=== PATIENT | male | born 1970 | race Two or more races ===

== ENCOUNTER 2019-06-26 20:22 | Emergency (ER) | payer MEDICAID ==
[~2019-06-26] VITALS: Ht 177.8 cm; Wt 68.0 kg
[2019-06-26 20:22] VITALS: BP 133/83
--- NOTE | 2019-06-26 20:22 | NUR ---
ED Nurse Note: Patient brought in by RA from street c/o ETOH. Denies nausea and vomiting. No pain or any discomfort. Pt has history of alcohol withdrawal. Not in any distress. VSS.
--- NOTE | 2019-06-26 20:26 | Emergency Room Report ---
History of Present Illness General Chief Complaint: Alcohol Intoxication Source: Patient, EMS (Maxi Bernard MD) Present Illness HPI 49-year-old male history of alcohol abuse drank 1 bottle of vodka, patient presents with acute intoxication patient was walking outside patient was found intoxicated by a bystander patient denies any head trauma patient states he is drinking he is trying to get into a program he has a history of alcohol withdrawal seizures patient presents for evaluation alcohol toxic patient is aggravated by drinking alleviated by not drinking severity is moderate, constant (Maxi Bernard MD) Allergies: Coded Allergies: No Known Allergies (Unverified , 06/26/19) Patient History Past Medical History: see triage record Social History: Reports: alcohol use - Alcohol abuse Reviewed Nursing Documentation: PMH: Agreed; PSxH: Agreed (Maxi Bernard MD) Review of Systems All Other Systems: negative except mentioned in HPI (Maxi Bernard MD) Physical Exam Vital Signs Date Time Temp Pulse Resp B/P (MAP) Pulse Ox O2 Delivery O2 Flow Rate FiO2 06/26/19 20:09 98.4 92 18 133/83 (100) 98 Room Air Sp02 EP Interpretation: reviewed, normal General Appearance: well appearing, no apparent distress, alert Head: normocephalic, atraumatic Eyes: bilateral eye PERRL, bilateral eye EOMI ENT: uvula midline, moist mucus membranes Neck: supple, thyroid normal, supple/symm/no masses Respiratory: lungs clear, no respiratory distress, no retraction, no accessory muscle use Cardiovascular #1: normal peripheral pulses, regular rate, rhythm, no edema, no gallop, no murmur Gastrointestinal: non tender, soft, no guarding, no rebound Musculoskeletal: normal inspection Neurologic: alert, oriented x3 Psychiatric: mood/affect normal Skin: no rash, warm/dry (Maxi Bernard MD) Medical Decision Making Diagnostic Impression: Primary Impression: Acute alcoholic intoxication Qualified Codes: F10.920 - Alcohol use, unspecified with intoxication, uncomplicated ER Course 49-year-old male presents with acute alcohol intoxication will continue to watch patient until he ivan Plan for discharge in the morning (Maxi Bernard MD) Last Vital Signs Date Time Temp Pulse Resp B/P (MAP) Pulse Ox O2 Delivery O2 Flow Rate FiO2 06/26/19 20:09 98.4 92 18 133/83 (100) 98 Room Air (Maxi Bernard MD) Reevaluation Time: 05:45 Reevaluation Impression Assumed care of the patient from previous provider approximately 10 PM. Briefly this a 49-year-old male who came in for evaluation of alcohol intoxication. He was allowed to sleep in the emergency department overnight. He is now clinically sober and stable for discharge. Resources provided in discharge paperwork. He can return to the emergency department new or worsening symptoms. (Mick Katz MD) Disposition: HOME, SELF-CARE Condition: Stable Referrals: [facility] Patient Instructions: Alcohol Intoxication, Eikj-lw-Icej, Alcohol Use Disorder Additional Instructions: The patient was provided with discharge instructions, notified to follow-up with a primary care doctor and or specialist in the next 24-48 hours, and to return to the ED if they have worsening of their symptoms. Please note that this report is being documented using [employer] technology. This can lead to erroneous entry secondary to incorrect interpretation by the dictating instrument. Maxi Bernard MD Jun 26, 2019 20:26 Mick Katz MD Jun 27, 2019 05:46
[2019-06-26] MEDS ORDERED: Thiamine 100mg tab ORAL ONE (20:30)
[2019-06-26] MEDS ORDERED: chlordiazePOXIDE 25mg Cap ORAL ONE (20:30)
[2019-06-26 23:05] VITALS: BP 137/76
--- NOTE | 2019-06-26 23:14 | NUR ---
ED Nurse Note: Pt seen sleeping in bed. Not in any distress.Will cont to monitor.
[2019-06-27 02:19] VITALS: BP 132/92
--- NOTE | 2019-06-27 02:20 | NUR ---
ED Nurse Note: Pt sleeping in bed. Safety and comfort provided. VSS.
[2019-06-27 05:27] VITALS: BP 132/92
--- NOTE | 2019-06-27 05:27 | NUR ---
ED Nurse Note: Pt cleared by ERMD for discharge. DC instructions was given and explained to pt and verbalized understanding of teachings. All medical deviecs such as ID band removed. Pt is AAO x4, ambulatory and left with all personal belongings. Pt will take the bus going home.
== END 2019-06-27 05:27 | disposition home or self-care (01) ==
LOC: EDBD 20:22 → EMR 21:45
DX: F10.129 Alcohol abuse with intoxication, unspecified (principal)
CPT/HCPCS: 99282